=== PATIENT | male | born 1985 | race Two or more races ===

== ENCOUNTER 2017-05-14 21:08 | Emergency (ER) | payer OTHER | END 2017-05-15 02:37 | disposition left against medical advice (07) | LOC: FTE 21:08 | DX: S20.211A Contusion of right front wall of thorax, initial encounter (principal); I10 Essential (primary) hypertension; F17.210 Nicotine dependence, cigarettes, uncomplicated; W18.39XA Other fall on same level, initial encounter; Y92.9 Unspecified place or not applicable | CPT/HCPCS: 99282 ==